=== PATIENT | female | born 1975 | race Caucasian/White ===

== ENCOUNTER 2017-09-27 10:17 | Emergency (ER) | payer MEDICARE, MEDICAID ==
[2017-09-27] MEDS ORDERED: cefTRIAXone\\ROCEPHIN 500 MG VIAL ONE (12:05)
[2017-09-27] MEDS ORDERED: Lidocaine 1% PF 5 ML VIAL ONE (12:05)
--- NOTE | 2017-09-27 12:23 | RAD ---
AP VIEW CHEST: Date: 09/27/17 HISTORY: Cough. FINDINGS: Comparison made to previous exam from 12/31/14. AP view chest demonstrates a dual lead intracardiac pacing device. The lungs are well aerated. No mariah dence of active intrathoracic disease is seen. No evidence of effusions, pneumonia, or pneumothorax s een. IMPRESSION: Unremarkable AP view of chest. POS: [facility]
== END 2017-09-27 12:42 | disposition home or self-care (01) ==
LOC: ERS 10:17
DX: J11.1 Influenza due to unidentified influenza virus with other respiratory manifestations (principal); I10 Essential (primary) hypertension; F41.9 Anxiety disorder, unspecified; F32.9 Major depressive disorder, single episode, unspecified; E78.5 Hyperlipidemia, unspecified; E11.9 Type 2 diabetes mellitus without complications
CPT/HCPCS: 71010; 96372; J0696; J2001

== ENCOUNTER 2018-02-13 17:18 | Emergency (ER) | payer MEDICARE, MEDICAID | END 2018-02-13 18:10 | disposition home or self-care (01) | LOC: ERS 17:18 | DX: R06.9 Unspecified abnormalities of breathing (principal); E78.5 Hyperlipidemia, unspecified; E11.9 Type 2 diabetes mellitus without complications; F41.9 Anxiety disorder, unspecified; F32.9 Major depressive disorder, single episode, unspecified; I10 Essential (primary) hypertension | CPT/HCPCS: 99283 ==